=== PATIENT | male | born 1950 | race Caucasian/White ===

== ENCOUNTER → 2019-09-10 | Outpatient (CLI) | payer MEDICARE | LOC: COL.RAD 09-03 14:30 | DX: J84.10 Pulmonary fibrosis, unspecified (principal); R91.1 Solitary pulmonary nodule; J43.9 Emphysema, unspecified | CPT/HCPCS: Q9967 ==

== ENCOUNTER 2020-09-18 14:58 | Emergency (ER) | payer MEDICARE ==
[~2020-09-18] VITALS: Ht 182.9 cm; Wt 93.6 kg
[2020-09-18 15:23] VITALS: BP 129/80; PULSE 88; TEMP 102
[2020-09-18 16:18] LABS: BASO % 0.4 % (0.0-2.0); EOS # 0.1 (0.0-0.7); GRAN # 8.3 (1.4-6.5); GRAN % 79.7 % (42.2-75.2); HEMATOCRIT 45.2 % (42.0-52.0); HEMOGLOBIN 14.9 g/dl (13.5-18.0); LYMPH # 1.2 (1.2-3.4); LYMPH % 11.8 % (20.0-51.0); MEAN CELL VOLUME 89 fl (80.0-100.0); MEAN CORPUSCULAR HEMOGLOBIN 29 pg (27.0-31.0); MEAN CORPUSCULAR HGB CONC 33 g/dl (33.0-37.0); MEAN PLATELET VOLUME 9.1 fl (7.4-10.4); MONO # 0.7 (0.1-0.6); MONO % 6.6 % (1.7-9.3); PLATELET COUNT 197 K/mm3 (130-400); RED BLOOD COUNT 5.07 M/mm3 (4.20-5.60); REDCELL DISTRIBUTION WIDTH-CV 11.9 % (11.5-14.5)
[2020-09-18 16:45] LABS: TROPONIN-I < 0.012 ng/mL (0.000-0.035)
[2020-09-18] MEDS ORDERED: PREDNISONE50 MG PO (16:55)
[2020-09-18] MEDS ORDERED: LEVAQUIN 750MG750 M1 PO (16:55)
== END 2020-09-18 17:00 | disposition home or self-care (01) ==
LOC: COL.ER 14:58
PROVIDERS: Emergency Medicine
DX: R50.9 Fever, unspecified (principal); J84.10 Pulmonary fibrosis, unspecified; Z20.822 Contact with and (suspected) exposure to COVID-19